=== PATIENT | male | born 1995 | race Caucasian/White ===

== ENCOUNTER 2024-07-19 11:51 | Emergency (ER) | payer MEDICAID | END 2024-07-19 14:00 | disposition home or self-care (01) | LOC: LL.ED 11:51 | DX: J10.1 Influenza due to other identified influenza virus with other respiratory manifestations (principal); Z79.899 Other long term (current) drug therapy | CPT/HCPCS: 87428-QW; 87651; 99283 ==

== ENCOUNTER 2024-11-06 10:05 | Day surgery (SDC) | payer MEDICAID ==
[~2024-11-06 10:05] MED LIST: Midazolam 1 MG/ML 2 ML SDV ONE; Propofol 200 MG/20 ML SDV ONE; Sodium Chloride 0.9% 10 ML Syringe FLUSH PRN
[2024-11-06] MEDS: Lactated Ringers 1,000 ML IV SCH (10:36)
[2024-11-06] MEDS ORDERED: Propofol 200 MG/20 ML SDV IV ONE (11:45)
== END 2024-11-06 12:56 | disposition home or self-care (01) ==
LOC: LL.SDS 10:05
PROVIDERS: ATTEND Surgery
DX: K20.0 Eosinophilic esophagitis (principal); K22.2 Esophageal obstruction; K21.9 Gastro-esophageal reflux disease without esophagitis; F17.200 Nicotine dependence, unspecified, uncomplicated; Z91.018 Allergy to other foods; Z79.899 Other long term (current) drug therapy
CPT/HCPCS: 00731; J1596; J2250; J2704; J7120